=== PATIENT | female | born 1985 | race Caucasian/White ===

== ENCOUNTER 2018-12-23 09:26 | Day surgery (SDC) | payer OTHER ==
[2018-12-22 15:10] VITALS: BMI 44.9
[2018-12-23] MEDS ORDERED: PROPOFOL 200 MG/20 ML VIAL ONE (10:15)
[2018-12-23] MEDS ORDERED: Lidocaine 1% PF 5 ML VIAL ONE (10:15)
[2018-12-23] MEDS ORDERED: Ondansetron PF 4 MG/2 ML Vial ONE (10:15)
[2018-12-23] MEDS ORDERED: Dexamethasone 20 MG/5 ML VIAL ONE (10:15)
[2018-12-23] MEDS ORDERED: Rocuronium Bromide 10 MG/ML (10ML VIAL) ONE (10:15)
[2018-12-23 10:42] LABS: BHCG - Serum Negative (NEGATIVE); Pregs Control Background? CLEAR/WHITE (CLR/WHITE); Pregs Control Bar Appear? YES (CONTROL BAR)
[2018-12-23] MEDS ORDERED: Midazolam HCl 2 mg/2 ml Vial ONE (11:56)
[2018-12-23] MEDS ORDERED: Fentanyl 100 MCG/2 ML VIAL ONE ×3 (11:56→16:16)
[2018-12-23] MEDS ORDERED: Lidocaine 1% w/Epinephrine 1:100K 20 ML VIAL ONE (12:15)
[2018-12-23] MEDS ORDERED: Ciprofloxacin 0.2% Otic 1 DROP CON ONE (12:15)
[2018-12-23] MEDS ORDERED: EPINEPHrine 1 MG/ML AMP ONE (12:15)
[2018-12-23] MEDS ORDERED: Bacitracin Zinc Ointment 30 gm TUBE ONE (12:15)
[2018-12-23] MEDS ORDERED: Promethazine HCl 25 MG/ML VIAL ONE (14:57)
--- NOTE | 2018-12-24 08:25 | OP ---
DATE OF PROCEDURE: 12/23/2018 PREOPERATIVE DIAGNOSES: Right chronic otitis media, right tympanic membrane perforation. POSTOPERATIVE DIAGNOSES: Right chronic otitis media, right tympanic membrane perforation. PROCEDURE PERFORMED: Right medial graft tympanoplasty using temporalis fascia. PROCEDURE IN DETAIL: After consent was obtained, the patient was identified and brought to the table and placed in supine position. The ear was evaluated under microscopic visualization and with a standard canal injection was performed after the patient has been put to sleep, the patient was then prepped and draped in position for ear surgery. The ear was irrigated with diluted Betadine solution. The postauricular incision was delineated with a marking pen under microscopic visualization. The marginal epithelium of the perforation was beaded with a straight pick and removed with micro cup. We then turned our attention to the postauricular area and made an incision through the skin, subcutaneous tissues, and postauricular muscles. We then continued the incision down to the temporalis fascia into the periosteum. A temporalis fascial graft was harvested from the temporalis area and put on the back table to dry under a drying lamp. We then proceeded with making a periosteal incision and creating a flap and elevated into the posterior canal area. The posterior canal skin was then elevated and connected in continuity with the flap and a transcutaneous incision was made and a Marilu was used to retract the ear anteriorly. A self-retaining retractor was then also placed and the microscope was used to visualize the eardrum and perforation. Vertical incisions were made with an 11 blade to facilitate dissection and mobilization of the tympanomeatal flap. A lancet knife was used to elevate the posterior canal skin and down to the level of the anulus. The middle ear mucosa was then entered and the anulus was elevated bilaterally allowing placement of the temporalis fascia under the tympanomeatal flap. The middle ear space was then filled with Gel-Foam. It did allow the graft to contact the undersurface of the perforation. The tympanomeatal flap was then replaced in normal position. The ear canal was filled with Gelfoam treated with Cortisporin. Ultimately, the periosteum was reapproximated that is where the postauricular muscles and the postauricular skin. Sterile dressing and a Jeannette dressing were applied. The patient was awakened, extubated, and taken to the recovery room in stable condition prior to discharge home. Job ID: [id number]
== END 2018-12-23 17:20 | disposition home or self-care (01) ==
LOC: SDC 09:26
PROVIDERS: ATTEND Specialist
PROC: 09U787Z Supplement Right Tympanic Membrane with Autologous Tissue Substitute, Via Natural or Artificial Opening Endoscopic (ICD-10-PCS; principal; 2018-12-23)
DX: H66.91 Otitis media, unspecified, right ear (principal); H72.91 Unspecified perforation of tympanic membrane, right ear; L29.9 Pruritus, unspecified; F17.290 Nicotine dependence, other tobacco product, uncomplicated; Z91.018 Allergy to other foods
CPT/HCPCS: 36415; 84703; 85014; J0171; J1100; J2001; J2250; J2405; J2550; J2704; J3010